=== PATIENT | male | born 1950 | race African-American/Black ===

== ENCOUNTER 2018-10-05 14:06 | Emergency (ER) | payer OTHER, MEDICARE, MEDICAID ==
[~2018-10-05] VITALS: Ht 175.3 cm; Wt 100.0 kg
[2018-10-05] MEDS ORDERED: DEXTROSE 50% WATER 50ML SYRINGE IV ONE ×2 (15:07→15:15)
[2018-10-05 15:40] LABS: BASOPHILS % 0.5 % (0.0-2.0); EOSINOPHILS % 0.6 % (0.0-5.0); HEMATOCRIT. 44.5 % (42.0-52.0); HEMOGLOBIN. 14.6 g/dL (14.0-18.0); LYMPHOCYTES % 8.5 % (20.0-50.0); MEAN CORPUSCULAR HEMOGLOBIN 30.7 pg (28.0-32.0); MEAN CORPUSCULAR VOLUME 93.6 fL (80.0-94.0); MEAN PLATELET VOLUME 7.8 fl (7.4-10.4); MONOCYTES % 6.4 % (2.0-8.0); PLATELET 312 x1000/uL (130-400); RED BLOOD CELL COUNT 4.75 mill/uL (4.7-6.1); RED CELL DISTRIBUTION WIDTH 14.8 % (11.6-14.6)
[2018-10-05 15:44] LABS: CHLORIDE 106 mEq/L (98-107)
[2018-10-05 15:48] LABS: ETHANOL BLOOD < 10 mg/dL
[2018-10-05] MEDS ORDERED: SODIUM CHLORIDE 0.9% 1,000 ML IV ONE (16:15)
[2018-10-05] MEDS ORDERED: DEXT 5%/0.9% NACL 1,000 ML IV ONE (17:15)
[2018-10-05 18:00] VITALS: BP 154/73
== END 2018-10-05 19:08 | disposition left against medical advice (07) ==
LOC: ER 14:30 → EDBEDREQSVC 17:50 → EDBEDREQ 17:50 → ER 19:08 → CANBEDREQ 19:20
DX: E11.649 Type 2 diabetes mellitus with hypoglycemia without coma (principal); E86.0 Dehydration; R41.82 Altered mental status, unspecified; I10 Essential (primary) hypertension
CPT/HCPCS: 36415; 70450; 71045; 80053; 80307; 80320; 80329; 82140; 82962; 83605; 83690; 83880; 84443; 84484; 85025; 93005; 96361; 96374; 99284; J7030; Z7610; G0480

== ENCOUNTER 2021-11-07 19:18 | Inpatient (IN) | payer OTHER, MEDICARE, MEDICAID ==
[~2021-11-07] VITALS: Ht 182.9 cm; Wt 121.1 kg
[2021-11-07] MEDS ORDERED: SODIUM CHLORIDE 0.9% 1,000 ML IV ONE (19:30)
[2021-11-07 21:23] LABS: BASOPHILS % 0.4 % (0.0-2.0); EOSINOPHILS % 0.2 % (0.0-5.0); HEMATOCRIT. 43.9 % (42.0-52.0); HEMOGLOBIN. 13.9 g/dL (14.0-18.0); LYMPHOCYTES % 8.7 % (20.0-50.0); MEAN CORPUSCULAR HEMOGLOBIN 29.6 pg (28.0-32.0); MEAN CORPUSCULAR VOLUME 93.6 fL (80.0-94.0); MEAN PLATELET VOLUME 7.9 fl (7.4-10.4); MONOCYTES % 3.1 % (2.0-8.0); NEUTROPHILS % 87.6 % (40.0-76.0); PLATELET 365 x1000/uL (130-400); RED BLOOD CELL COUNT 4.69 mill/uL (4.7-6.1); RED CELL DISTRIBUTION WIDTH 15.7 % (11.6-14.6)
[2021-11-07 21:27] LABS: CLARITY URINE CLEAR (CLEAR); COLOR URINE YELLOW (YELLOW); KETONES URINE NEGATIVE (NEGATIVE); LEUKOCYTE ESTERASE URINE NEGATIVE (NEGATIVE); NITRITE URINE NEGATIVE (NEGATIVE); OCCULT BLOOD URINE TRACE (NEGATIVE); PROTEIN URINE 4+ (NEGATIVE); SPECIFIC GRAVITY URINE 1.015 (1.005-1.030)
[2021-11-07 21:31] LABS: CHLORIDE 112 mEq/L (98-107)
[2021-11-07 21:38] LABS: *AMPHETAMINES SCREEN URINE NEGATIVE (NEGATIVE); *BARBITURATES SCREEN URINE NEGATIVE (NEGATIVE); *BENZODIAZEPINES SCREEN URINE NEGATIVE (NEGATIVE); *COCAINE SCREEN URINE NEGATIVE (NEGATIVE); CANNABINOID URINE SCREEN NEGATIVE (NEGATIVE); METHADONE URINE SCREEN NEGATIVE (NEGATIVE); OPIATES URINE SCREEN NEGATIVE (NEGATIVE); PHENCYCLIDINE URINE SCREEN NEGATIVE (NEGATIVE)
[2021-11-07 21:40] LABS: ETHANOL BLOOD < 10 mg/dL
[2021-11-08 04:41] VITALS: BP 169/71
[2021-11-08] MEDS ORDERED: INSU100I28 SUBCUT (05:25)
[2021-11-08] MEDS ORDERED: INSU100I12 SUBCUT (05:25)
[2021-11-08] MEDS ORDERED: AMLO10TA80 PO ×2 (05:25→14:32)
[2021-11-08] MEDS ORDERED: ATOR20TA65 PO ×2 (05:25→14:31)
[2021-11-08] MEDS ORDERED: METO-385 PO ×2 (05:25→14:29)
[2021-11-08] MEDS ORDERED: CLONIDINE 0.1MG TABLET PO PRN (05:30)
[2021-11-08] MEDS ORDERED: DEXTROSE 50% WATER 50ML SYRINGE IV PRN (05:30)
[2021-11-08] MEDS ORDERED: ACETAMINOPHEN 325MG TABLET PO PRN (05:30)
[2021-11-08] MEDS: BLOOD SUGAR DIAGNOSTIC STRIP TEST SCH ×4 (06:10→20:13)
[2021-11-08] MEDS: SODIUM CHLORIDE 0.45% 1,000 ML IV SCH ×2 (06:10→20:30)
[2021-11-08 08:00] VITALS: BP 158/93
[2021-11-08] MEDS: INSULIN LISPRO 100 UNITS/ML SUBCUT SCH ×4 (08:10→20:28)
[2021-11-08] MEDS: HEPARIN 5000 UNITS/ML VIAL SUBCUT SCH ×2 (09:00→20:27)
[2021-11-08] MEDS: ASPIRIN 81MG TABLET PO SCH (09:04)
[2021-11-08] MEDS: AMLODIPINE 5MG TABLET PO SCH ×2 (09:07→20:27)
[2021-11-08 09:11] LABS: BASOPHILS % 0.3 % (0.0-2.0); EOSINOPHILS % 0.6 % (0.0-5.0); HEMATOCRIT. 40.1 % (42.0-52.0); HEMOGLOBIN. 12.7 g/dL (14.0-18.0); LYMPHOCYTES % 13.7 % (20.0-50.0); MEAN CORPUSCULAR HEMOGLOBIN 29.6 pg (28.0-32.0); MEAN CORPUSCULAR VOLUME 93.4 fL (80.0-94.0); MEAN PLATELET VOLUME 7.8 fl (7.4-10.4); MONOCYTES % 8.6 % (2.0-8.0); NEUTROPHILS % 76.8 % (40.0-76.0); PLATELET 337 x1000/uL (130-400); RED BLOOD CELL COUNT 4.29 mill/uL (4.7-6.1); RED CELL DISTRIBUTION WIDTH 16.1 % (11.6-14.6)
[2021-11-08 09:28] LABS: CHLORIDE 113 mEq/L (98-107)
[2021-11-08 09:46] LABS: HDL CHOLESTEROL 36 mg/dL (40-59); LDL CHOLESTEROL 66 mg/dL (5-100)
[2021-11-08 12:00] VITALS: BP 103/72
[2021-11-08] MEDS ORDERED: CEFTRIAXONE 1 G PREMIX 50 ML IV SCH (14:15)
[2021-11-08] MEDS ORDERED: CALC0.5C PO (14:29)
[2021-11-08] MEDS ORDERED: FURO20TA4 PO (14:30)
[2021-11-08] MEDS ORDERED: AMLODIPINE 10MG TABLET PO SCH (14:30)
[2021-11-08 16:00] VITALS: BP 158/79
[2021-11-08] MEDS: CEFTRIAXONE 1,000 MG in DEXTROSE 5% WATER 50 ML IV SCH (17:31)
[2021-11-08] MEDS: METOPROLOL SUCCINATE 50MG ER TABLET PO SCH (17:52)
[2021-11-08 20:00] VITALS: BP 161/81
[2021-11-08] MEDS ORDERED: ATORVASTATIN CALCIUM 20MG TABLET PO SCH (21:00)
[2021-11-09] VITALS: BP 128/77
[2021-11-09 04:00] VITALS: BP 118/79
[2021-11-09] MEDS: BLOOD SUGAR DIAGNOSTIC STRIP TEST SCH ×2 (06:17→12:34)
[2021-11-09 07:11] LABS: BASOPHILS % 0.6 % (0.0-2.0); EOSINOPHILS % 3.6 % (0.0-5.0); HEMATOCRIT. 37.1 % (42.0-52.0); LYMPHOCYTES % 26.2 % (20.0-50.0); MEAN CORPUSCULAR VOLUME 92.6 fL (80.0-94.0); MEAN PLATELET VOLUME 8.1 fl (7.4-10.4); MONOCYTES % 9.4 % (2.0-8.0); NEUTROPHILS % 60.2 % (40.0-76.0); PLATELET 312 x1000/uL (130-400); RED CELL DISTRIBUTION WIDTH 15.5 % (11.6-14.6)
[2021-11-09] MEDS: INSULIN LISPRO 100 UNITS/ML SUBCUT SCH ×2 (08:04→12:34)
[2021-11-09] MEDS: AMLODIPINE 5MG TABLET PO SCH (09:17)
[2021-11-09] MEDS: METOPROLOL SUCCINATE 50MG ER TABLET PO SCH (09:17)
[2021-11-09] MEDS: HEPARIN 5000 UNITS/ML VIAL SUBCUT SCH (09:17)
[2021-11-09] MEDS: ASPIRIN 81MG TABLET PO SCH (09:17)
[2021-11-09 12:00] VITALS: BP 166/71
[2021-11-09] MEDS: CEFTRIAXONE 1,000 MG in DEXTROSE 5% WATER 50 ML IV SCH (14:45)
[2021-11-09 16:41] VITALS: BP 138/78
== END 2021-11-09 17:43 | disposition home or self-care (01) | DRG 637 ==
LOC: ER 19:18 → 7WST 11-08 00:46 → ENRESERV 11-08 03:21 → 7WST 11-08 04:24
PROVIDERS: ADMIT Internal Medicine; ATTEND Internal Medicine
DX: E11.649 Type 2 diabetes mellitus with hypoglycemia without coma (principal); G93.41 Metabolic encephalopathy; I12.9 Hypertensive chronic kidney disease with stage 1 through stage 4 chronic kidney disease, or unspecified chronic kidney disease; E11.22 Type 2 diabetes mellitus with diabetic chronic kidney disease; N18.9 Chronic kidney disease, unspecified; E78.5 Hyperlipidemia, unspecified; D72.829 Elevated white blood cell count, unspecified; Z79.4 Long term (current) use of insulin
CPT/HCPCS: 36415; 71045; 76770; 80048; 80053; 80061; 80305; 80320; 81003; 82962; 83036; 83880; 84436; 84443; 84484; 85025; 93005; 99285; C1893; J0696; J1644; J1815; J7030; J7060; G0480

== ENCOUNTER 2022-06-06 20:09 | Inpatient (IN) | payer OTHER, MEDICARE, MEDICAID ==
[~2022-06-06] VITALS: Ht 182.9 cm; Wt 109.1 kg
[~2022-06-06 20:09] MED LIST: AMLO10TA80 PO; ATOR20TA65 PO; CALC0.5C PO; FURO20TA4 PO; INSU100I12 SUBCUT; INSU100I28 SUBCUT; METO-385 PO
[2022-06-06 20:38] LABS: BASOPHILS % 0.5 % (0.0-2.0); EOSINOPHILS % 0.3 % (0.0-5.0); HEMATOCRIT. 40.8 % (42.0-52.0); HEMOGLOBIN. 13.2 g/dL (14.0-18.0); LYMPHOCYTES % 10.3 % (20.0-50.0); MEAN CORPUSCULAR HEMOGLOBIN 30.3 pg (28.0-32.0); MEAN CORPUSCULAR VOLUME 93.8 fL (80.0-94.0); MEAN PLATELET VOLUME 8.5 fl (7.4-10.4); MONOCYTES % 5.4 % (2.0-8.0); NEUTROPHILS % 83.5 % (40.0-76.0); PLATELET 279 x1000/uL (130-400); RED BLOOD CELL COUNT 4.35 mill/uL (4.7-6.1); RED CELL DISTRIBUTION WIDTH 15.8 % (11.6-14.6)
[2022-06-06 20:46] LABS: CHLORIDE 104 mEq/L (98-107)
[2022-06-06 20:47] LABS: INR 1.2; PROTHROMBIN TIME 12.3 sec (9.6-11.0)
[2022-06-06 20:55] LABS: CREATINE KINASE 112 IU/L (39-308); ETHANOL BLOOD < 10 mg/dL
[2022-06-06 21:03] LABS: BETA HYDROXYBUTYRATE 1.3 mMol/L (0.0-0.3)
[2022-06-06] MEDS ORDERED: INSULIN REGULAR (DRIP) 100 UNITS in SODIUM CHLORIDE 0.9% 99 ML IV SCH (22:00)
[2022-06-06] MEDS ORDERED: SODIUM CHLORIDE 0.9% 1,000 ML IV ONE (22:00)
[2022-06-06 22:28] LABS: BG CARBOXYHEMOGLOBIN 0.8 % (0.5-1.5); BG DEOXYHEMOGLOBIN 3.2 % (0.0-5.0); BG FRACTION INSPIRED OXYGEN 21; BG HCO3 ACT 16.3 mmol/L (22.0-26.0); BG METHEMOGLOBIN 0.3 % (0.0-1.5); BG OXYGEN SATURATION 96.8 % (92.0-98.5); BG OXYHEMOGLOBIN 95.7 % (94.0-97.0); BG PCO2 30.4 mmHg (35.0-45.0); BG PH 7.347 (7.350-7.450); BG SAMPLE SITE RIGHT RADIAL; BG TOTAL HEMOGLOBIN 13.9 g/dL (12.0-18.0); BG VENT MODE ROOM AIR
[2022-06-06] MEDS ORDERED: INSULIN REGULAR 100U/100ML PMX 100 ML IV NR (22:45)
[2022-06-06] MEDS ORDERED: INSULIN REGULAR 100U/100ML PMX 99 ML IV NR (22:45)
[2022-06-06] MEDS ORDERED: HYDRALAZINE 20MG/ML VIAL IV ONE (23:00)
[2022-06-06] MEDS ORDERED: LACTATED RINGERS 1,000 ML IV SCH (23:30)
[2022-06-07 02:20] LABS: CLARITY URINE CLEAR (CLEAR); COLOR URINE YELLOW (YELLOW); KETONES URINE 1+ (NEGATIVE); LEUKOCYTE ESTERASE URINE NEGATIVE (NEGATIVE); NITRITE URINE NEGATIVE (NEGATIVE); OCCULT BLOOD URINE 1+ (NEGATIVE); PROTEIN URINE 4+ (NEGATIVE); SPECIFIC GRAVITY URINE 1.028 (1.005-1.030); UROBILINOGEN URINE 0.2 E.U./dL (0.2-1.0)
[2022-06-07 02:32] LABS: *AMPHETAMINES SCREEN URINE NEGATIVE (NEGATIVE); *BARBITURATES SCREEN URINE NEGATIVE (NEGATIVE); *BENZODIAZEPINES SCREEN URINE NEGATIVE (NEGATIVE); *COCAINE SCREEN URINE NEGATIVE (NEGATIVE); CANNABINOID URINE SCREEN NEGATIVE (NEGATIVE); METHADONE URINE SCREEN NEGATIVE (NEGATIVE); OPIATES URINE SCREEN NEGATIVE (NEGATIVE); PHENCYCLIDINE URINE SCREEN NEGATIVE (NEGATIVE)
[2022-06-07 04:25] LABS: EOSINOPHILS % 0.1 % (0.0-5.0); HEMATOCRIT. 40.8 % (42.0-52.0); HEMOGLOBIN. 13.4 g/dL (14.0-18.0); LYMPHOCYTES % 11.4 % (20.0-50.0); MEAN CORPUSCULAR HEMOGLOBIN 29.7 pg (28.0-32.0); MEAN CORPUSCULAR VOLUME 90.3 fL (80.0-94.0); MEAN PLATELET VOLUME 8.1 fl (7.4-10.4); MONOCYTES % 8.6 % (2.0-8.0); NEUTROPHILS % 78.9 % (40.0-76.0); PLATELET 308 x1000/uL (130-400); RED BLOOD CELL COUNT 4.52 mill/uL (4.7-6.1); RED CELL DISTRIBUTION WIDTH 15.9 % (11.6-14.6)
[2022-06-07 04:45] LABS: CHLORIDE 116 mEq/L (98-107)
[2022-06-07] MEDS: DEXT 5%/0.45% NACL 1000ML 1,000 ML IV SCH (06:29)
[2022-06-07] MEDS ORDERED: HYDRALAZINE 20MG/ML VIAL IV ONE (07:15)
[2022-06-07] MEDS ORDERED: METOCLOPRAMIDE HCL 10MG/2ML VIAL IV ONE (07:15)
[2022-06-07] MEDS ORDERED: HYDRALAZINE 20MG/ML VIAL IV NR (07:30)
[2022-06-07] MEDS: ONDANSETRON HCL 4MG/2ML INJ IV PRN ×2 (13:18→20:45)
[2022-06-07] MEDS ORDERED: PIPERACILLIN/TAZ 3.375G PREMIX 50 ML IV NR (16:15)
[2022-06-07] MEDS ORDERED: BLOOD SUGAR DIAGNOSTIC STRIP TEST SCH (21:18)
[2022-06-07] MEDS ORDERED: INSULIN LISPRO (MEDIUM DOSE) 100 UNITS/ML SUBCUT SCH (21:18)
[2022-06-07] MEDS ORDERED: DEXTROSE 50% WATER 50ML SYRINGE IV PRN (21:30)
[2022-06-07] MEDS: BLOOD SUGAR DIAGNOSTIC STRIP TEST SCH (22:30)
[2022-06-07] MEDS: INSULIN REGULAR HUMAN (MEDIUM DOSE) 100 UNITS/ML 3ML VIAL SUBCUT SCH (22:37)
[2022-06-08] MEDS: BLOOD SUGAR DIAGNOSTIC STRIP TEST SCH ×6 (02:24→21:42)
[2022-06-08] MEDS: INSULIN REGULAR HUMAN (MEDIUM DOSE) 100 UNITS/ML 3ML VIAL SUBCUT SCH ×5 (02:24→21:44)
[2022-06-08] MEDS ORDERED: PIPERACILLIN/TAZOBACTAM 3.375 G in DEXTROSE 5% WATER 50 ML IV SCH (09:00)
[2022-06-08] MEDS ORDERED: PIPERACILLIN/TAZ 3.375G PREMIX 50 ML IV SCH (09:30)
[2022-06-08 10:30] VITALS: BP 137/89
[2022-06-08] MEDS ORDERED: AMLO-337 MT (12:39)
[2022-06-08] MEDS ORDERED: ASPI-1406 PO (12:39)
[2022-06-08] MEDS ORDERED: CHLO25TA2 PO (12:40)
[2022-06-08] MEDS ORDERED: [UNRECOGNIZED DRUG - CODE] PO (12:42)
[2022-06-08 12:45] VITALS: BP 137/89
[2022-06-08] MEDS ORDERED: HYDRALAZINE 20MG/ML VIAL IV PRN (13:15)
[2022-06-08 16:00] VITALS: BP 176/81
[2022-06-08] MEDS ORDERED: INSULIN REGULAR (HUMULIN R) 300UNITS/3ML VIAL SUBCUT NR (16:00)
[2022-06-08] MEDS: DEXT 5%/0.45% NACL 1000ML 1,000 ML IV SCH (16:38)
[2022-06-08] MEDS: PIPERACILLIN/TAZOBACTAM 3.375 G in DEXTROSE 5% WATER 50 ML IV SCH ×2 (16:38→21:36)
[2022-06-08] MEDS: METOPROLOL SUCCINATE 50MG ER TABLET PO SCH (17:48)
[2022-06-08] MEDS: AMLODIPINE 10MG TABLET PO SCH (17:49)
[2022-06-08] MEDS: SODIUM CHLORIDE 0.45% 1,000 ML IV SCH (17:55)
[2022-06-08 20:00] VITALS: BP 137/78
[2022-06-08 20:41] LABS: BASOPHILS % 0.4 % (0.0-2.0); EOSINOPHILS % 0.8 % (0.0-5.0); HEMATOCRIT. 36.5 % (42.0-52.0); LYMPHOCYTES % 19.7 % (20.0-50.0); MEAN CORPUSCULAR VOLUME 91.4 fL (80.0-94.0); MEAN PLATELET VOLUME 8.7 fl (7.4-10.4); MONOCYTES % 8.4 % (2.0-8.0); NEUTROPHILS % 70.7 % (40.0-76.0); PLATELET 310 x1000/uL (130-400); RED BLOOD CELL COUNT 3.99 mill/uL (4.7-6.1); RED CELL DISTRIBUTION WIDTH 15.6 % (11.6-14.6)
[2022-06-08 20:49] LABS: CHLORIDE 108 mEq/L (98-107)
[2022-06-09] VITALS (8 sets, daily range): BP systolic 116–167; BP diastolic 74–83
[2022-06-09] MEDS: INSULIN REGULAR HUMAN (MEDIUM DOSE) 100 UNITS/ML 3ML VIAL SUBCUT SCH ×4 (02:30→22:58)
[2022-06-09] MEDS: BLOOD SUGAR DIAGNOSTIC STRIP TEST SCH ×2 (02:30→22:48)
[2022-06-09] MEDS: SODIUM CHLORIDE 0.45% 1,000 ML IV SCH ×3 (03:45→23:45)
[2022-06-09] MEDS ORDERED: PIPERACILLIN/TAZOBACTAM 3.375 G in DEXTROSE 5% WATER 50 ML IV SCH (09:00)
[2022-06-09] MEDS: AMLODIPINE 10MG TABLET PO SCH (09:46)
[2022-06-09] MEDS: PIPERACILLIN/TAZOBACTAM 3.375 G in DEXTROSE 5% WATER 50 ML IV SCH ×2 (09:46→21:00)
[2022-06-09] MEDS: METOPROLOL SUCCINATE 50MG ER TABLET PO SCH (09:47)
[2022-06-09 12:18] LABS: BASOPHILS % 0.4 % (0.0-2.0); EOSINOPHILS % 0.9 % (0.0-5.0); HEMATOCRIT. 38.3 % (42.0-52.0); HEMOGLOBIN. 12.4 g/dL (14.0-18.0); LYMPHOCYTES % 15.4 % (20.0-50.0); MEAN CORPUSCULAR HEMOGLOBIN 29.8 pg (28.0-32.0); MEAN CORPUSCULAR VOLUME 92.1 fL (80.0-94.0); MEAN PLATELET VOLUME 8.5 fl (7.4-10.4); MONOCYTES % 7.1 % (2.0-8.0); NEUTROPHILS % 76.2 % (40.0-76.0); PLATELET 298 x1000/uL (130-400); RED BLOOD CELL COUNT 4.15 mill/uL (4.7-6.1); RED CELL DISTRIBUTION WIDTH 15.7 % (11.6-14.6)
[2022-06-09 12:24] LABS: CHLORIDE 109 mEq/L (98-107)
[2022-06-09] MEDS ORDERED: INSULIN REGULAR (HUMULIN R) 300UNITS/3ML VIAL SUBCUT NR (18:30)
[2022-06-10] VITALS (7 sets, daily range): BP systolic 115–163; BP diastolic 65–91
[2022-06-10] MEDS: BLOOD SUGAR DIAGNOSTIC STRIP TEST SCH ×6 (02:37→21:34)
[2022-06-10] MEDS: INSULIN REGULAR HUMAN (MEDIUM DOSE) 100 UNITS/ML 3ML VIAL SUBCUT SCH ×5 (02:37→21:33)
[2022-06-10] MEDS: PIPERACILLIN/TAZOBACTAM 3.375 G in DEXTROSE 5% WATER 50 ML IV SCH ×2 (09:00→20:39)
[2022-06-10] MEDS: METOPROLOL SUCCINATE 50MG ER TABLET PO SCH (09:33)
[2022-06-10] MEDS: AMLODIPINE 10MG TABLET PO SCH (09:33)
[2022-06-10] MEDS: SODIUM CHLORIDE 0.45% 1,000 ML IV SCH ×2 (09:45→19:45)
[2022-06-10 17:05] LABS: BASOPHILS % 0.6 % (0.0-2.0); EOSINOPHILS % 1.4 % (0.0-5.0); HEMATOCRIT. 36.9 % (42.0-52.0); LYMPHOCYTES % 21.4 % (20.0-50.0); MEAN CORPUSCULAR HEMOGLOBIN 29.7 pg (28.0-32.0); MEAN CORPUSCULAR VOLUME 91.4 fL (80.0-94.0); MEAN PLATELET VOLUME 8.8 fl (7.4-10.4); MONOCYTES % 8.8 % (2.0-8.0); NEUTROPHILS % 67.8 % (40.0-76.0); PLATELET 283 x1000/uL (130-400); RED BLOOD CELL COUNT 4.04 mill/uL (4.7-6.1); RED CELL DISTRIBUTION WIDTH 15.6 % (11.6-14.6)
[2022-06-10] MEDS ORDERED: INSULIN REGULAR (HUMULIN R) 300UNITS/3ML VIAL SUBCUT NR (18:15)
[2022-06-11] VITALS: BP 125/74
[2022-06-11] MEDS: BLOOD SUGAR DIAGNOSTIC STRIP TEST SCH ×4 (01:52→14:30)
[2022-06-11] MEDS: INSULIN REGULAR HUMAN (MEDIUM DOSE) 100 UNITS/ML 3ML VIAL SUBCUT SCH ×3 (01:53→12:44)
[2022-06-11 04:00] VITALS: BP 122/58
[2022-06-11] MEDS: SODIUM CHLORIDE 0.45% 1,000 ML IV SCH ×2 (04:50→15:45)
[2022-06-11 08:00] VITALS: BP 138/75
[2022-06-11] MEDS: PIPERACILLIN/TAZOBACTAM 3.375 G in DEXTROSE 5% WATER 50 ML IV SCH (09:00)
[2022-06-11] MEDS: AMLODIPINE 10MG TABLET PO SCH (09:43)
[2022-06-11] MEDS: METOPROLOL SUCCINATE 50MG ER TABLET PO SCH (09:44)
[2022-06-11 12:00] VITALS: BP 160/67
[2022-06-11 16:00] VITALS: BP 152/62
[2022-06-11 16:38] VITALS: BP 152/62
== END 2022-06-11 17:00 | disposition home or self-care (01) | DRG 637 ==
LOC: ER 20:09 → MICUSO 22:27 → 7EST 06-08 11:31
PROVIDERS: ADMIT Internal Medicine; ATTEND Internal Medicine
DX: E11.10 Type 2 diabetes mellitus with ketoacidosis without coma (principal); G92.8 Other toxic encephalopathy; N17.9 Acute kidney failure, unspecified; N18.4 Chronic kidney disease, stage 4 (severe); E11.22 Type 2 diabetes mellitus with diabetic chronic kidney disease; Z20.822 Contact with and (suspected) exposure to COVID-19; E78.5 Hyperlipidemia, unspecified; E66.9 Obesity, unspecified; I12.9 Hypertensive chronic kidney disease with stage 1 through stage 4 chronic kidney disease, or unspecified chronic kidney disease; I16.0 Hypertensive urgency; D72.829 Elevated white blood cell count, unspecified; Z68.32 Body mass index [BMI] 32.0-32.9, adult; Z79.899 Other long term (current) drug therapy; Z91.14 Patient's other noncompliance with medication regimen
CPT/HCPCS: 36415; 36600; 71045; 76770; 80048; 80053; 80305; 80320; 81003; 82010; 82140; 82375; 82550; 82805; 82962; 83036; 83605; 83880; 84443; 84484; 85025; 93005; 97162; 99291; C1893; J0360; J1815; J2405; J2543; J2765; J7030; J7050; J7060; G0480